=== PATIENT | male | born 1965 | race Caucasian/White ===

== ENCOUNTER → 2017-02-21 | Outpatient (REF) | payer OTHER ==
[~2017-02-21] MED LIST: ADV250INH INH; INDO50CA PO
== END ==
LOC: M LAB REF 12:57
PROVIDERS: ATTEND Internal Medicine
DX: M10.9 Gout, unspecified (principal)

== ENCOUNTER → 2019-08-03 | Outpatient (REF) | payer OTHER ==
[~2019-08-03] MED LIST changes: -INDO50CA PO; +INDO50CA91 PO
== END ==
LOC: M LAB REF 12:11
PROVIDERS: ATTEND Internal Medicine
DX: M10.9 Gout, unspecified (principal)

== ENCOUNTER → 2020-10-14 | Outpatient (REF) | payer OTHER | LOC: M LAB REF 16:30 | PROVIDERS: ATTEND Internal Medicine | DX: E79.0 Hyperuricemia without signs of inflammatory arthritis and tophaceous disease (principal) ==

== ENCOUNTER → 2021-10-20 | Outpatient (REF) | payer OTHER | LOC: M LAB REF 11:21 | PROVIDERS: ATTEND Internal Medicine | DX: E78.00 Pure hypercholesterolemia, unspecified (principal) ==

== ENCOUNTER → 2021-12-03 | Outpatient (CLI) | payer OTHER | LOC: M LABSMTC 09:23 | PROVIDERS: ATTEND Anesthesiology | DX: Z01.812 Encounter for preprocedural laboratory examination (principal); Z20.822 Contact with and (suspected) exposure to COVID-19 ==

== ENCOUNTER 2021-12-08 08:27 | Day surgery (SDC) | payer OTHER ==
[~2021-12-08] VITALS: Ht 170.2 cm; Wt 94.4 kg
[~2021-12-08 08:27] MED LIST changes: +LR 1,000 ML IV ONE
[2021-12-08] MEDS ORDERED: ROCURONIUM BROMIDE 50 MG/5 ML VIAL As Ordered ONE (09:09)
[2021-12-08] MEDS ORDERED: propofoL 200 MG/20 ML VIAL As Ordered ONE (09:09)
[2021-12-08] MEDS ORDERED: METOCLOPRAMIDE INJ 10MG/2ML VIAL (J2765 PER 1) As Ordered ONE (09:09)
[2021-12-08] MEDS ORDERED: dexameTHASONE 4 MG/ML 1ML VIAL (J1100 PER 1MG) As Ordered ONE (09:09)
[2021-12-08] MEDS ORDERED: ACETAMINOPHEN 1000MG 100ML IV BTL (OFIRMEV) (J0131 PER 10MG) As Ordered ONE (09:09)
[2021-12-08] MEDS ORDERED: fentaNYL 100 MCG/2 ML INJECTION (J3010) As Ordered ONE ×2 (09:09→14:57)
[2021-12-08] MEDS ORDERED: LIDOCAINE 2% 100MG/5ML SDV (FOR ANES.) As Ordered ONE (09:09)
[2021-12-08] MEDS ORDERED: MIDAZOLAM INJ 2MG/2ML VIAL (J2250 PER 1MG) As Ordered ONE (09:09)
[2021-12-08] MEDS ORDERED: ONDANSETRON 4MG/2ML VIAL As Ordered ONE (09:09)
[2021-12-08] MEDS ORDERED: BUPIVACAINE HCL 0.25% 30ML VIAL As Ordered ONE (10:50)
[2021-12-08] MEDS ORDERED: KETOROLAC 60MG 2ML VIAL As Ordered ONE (12:24)
[2021-12-08] MEDS ORDERED: LR 1,000 ML IV SCH (12:55)
[2021-12-08] MEDS ORDERED: PERCOCET 5MG/325MG TAB PO PRN (12:55)
[2021-12-08] MEDS ORDERED: fentaNYL 100 MCG/2 ML INJECTION (J3010) IV PRN (12:55)
[2021-12-08] MEDS ORDERED: METOCLOPRAMIDE INJ 10MG/2ML VIAL (J2765 PER 1) IV PRN (12:55)
[2021-12-08] MEDS ORDERED: ONDANSETRON 4MG/2ML VIAL IV PRN (12:55)
[2021-12-08] MEDS ORDERED: NORCO, ANEXSIA 5/325MG TABLET (HYDROcodone/ACETAMINOPHEN) PO PRN (13:00)
[2021-12-08] MEDS ORDERED: IBUPROFEN 600MG TAB PO PRN (13:00)
[2021-12-08] MEDS ORDERED: ACETAMINOPHEN TAB 650MG DOSE (2X325MG) PO PRN (13:00)
[2021-12-08 14:30] VITALS: BP 144/88
[2021-12-08] MEDS ORDERED: SUGAMMADEX SODIUM 500 MG/5 ML VIAL (BRIDION) As Ordered ONE (14:57)
[2021-12-08] MEDS ORDERED: PHENYLephrine 500MCG 5ML (100MCG/ML) SYRINGE As Ordered ONE (16:05)
== END 2021-12-08 15:15 | disposition home or self-care (01) ==
LOC: M SDC 08:27
PROVIDERS: ATTEND Surgery
DX: K40.90 Unilateral inguinal hernia, without obstruction or gangrene, not specified as recurrent (principal); M10.9 Gout, unspecified; J45.909 Unspecified asthma, uncomplicated; Z79.899 Other long term (current) drug therapy; Z79.51 Long term (current) use of inhaled steroids; Z91.010 Allergy to peanuts
CPT/HCPCS: 49650; C1781; J0131; J1100; J1885; J2250; J2370; J2405; J2765; J3010; S2900

== ENCOUNTER → 2022-10-20 | Outpatient (REF) | payer OTHER ==
[~2022-10-20] MED LIST changes: -LR 1,000 ML IV ONE
[2022-10-20 13:55] LABS: URIC ACID 7.4 MG/DL (3.7-9.2)
== END ==
LOC: M LAB REF 12:23
PROVIDERS: ATTEND Internal Medicine
DX: N52.9 Male erectile dysfunction, unspecified (principal); E79.0 Hyperuricemia without signs of inflammatory arthritis and tophaceous disease

== ENCOUNTER → 2023-01-13 | Outpatient (CLI) | payer OTHER ==
[~2023-01-13] MED LIST changes: +ISOVUE-300 61% 100ML VIAL As Ordered ONE; +LIDOCAINE 1% MDV 20ML VIAL As Ordered ONE; +PROHANCE 279.3MG/ML 5ML VIAL As Ordered ONE
== END ==
LOC: M RAD 06:52
PROVIDERS: ATTEND Physician Assistant
DX: S46.011A Strain of muscle(s) and tendon(s) of the rotator cuff of right shoulder, initial encounter (principal); X58.XXXA Exposure to other specified factors, initial encounter; Y92.9 Unspecified place or not applicable
CPT/HCPCS: 23350; 73223; 77002; A9576

== ENCOUNTER 2023-01-18 07:48 | Inpatient (IN) | payer OTHER ==
[2023-01-18] VITALS (9 sets, daily range): BP systolic 160–170; BP diastolic 79–98; O2SAT 95–97
[~2023-01-18] VITALS: Ht 170.2 cm; Wt 93.5 kg
[~2023-01-18 07:48] MED LIST changes: -ISOVUE-300 61% 100ML VIAL As Ordered ONE; -LIDOCAINE 1% MDV 20ML VIAL As Ordered ONE; -PROHANCE 279.3MG/ML 5ML VIAL As Ordered ONE
[2023-01-18] MEDS ORDERED: ONDANSETRON 4MG 2ML VIAL IV ONE (08:30)
[2023-01-18] MEDS: MORPHINE 4 MG/ML 1ML VIAL IV PRN ×2 (08:52→10:06)
[2023-01-18 10:15] LABS: HEMATOCRIT 44.5 % (42.0-52.0); MEAN CORPUSCULAR HGB CONC 33.7 g/dl (32.0-36.5); MEAN CORPUSCULAR VOLUME 97.8 fl (80.0-96.0); PLATELET COUNT, AUTOMATED 219 10^3/uL (150-450); RED BLOOD COUNT 4.55 10^6/uL (4.30-6.10); WHITE BLOOD COUNT 13.2 10^3/uL (4.0-10.0)
[2023-01-18 10:39] LABS: BLOOD UREA NITROGEN 12 MG/DL (9-23); CALCIUM LEVEL 8.6 MG/DL (8.5-10.1); CARBON DIOXIDE LEVEL 29 MMOL/L (20-31); CHLORIDE LEVEL 105 MMOL/L (98-107); CREATININE FOR GFR 0.84 MG/DL (0.70-1.30); GLOMERULAR FILTRATION RATE > 60.0 (>56); GLUCOSE, FASTING 107 MG/DL (60-100); POTASSIUM SERUM 4.6 MMOL/L (3.5-5.1); SODIUM LEVEL 139 MMOL/L (136-145)
[2023-01-18 10:47] LABS: RSV AMPLIFICATION NEGATIVE (NEGATIVE)
[2023-01-18] MEDS ORDERED: HOME MED LIST COMPLETE! XX SCH (11:05)
[2023-01-18] MEDS ORDERED: ACETAMINOPHEN TAB 650MG DOSE (2X325MG) PO PRN (11:30)
[2023-01-18] MEDS ORDERED: ONDANSETRON 4MG 2ML VIAL IV PRN (11:35)
[2023-01-18] MEDS ORDERED: MORPHINE 4 MG/ML 1ML VIAL IV PRN (11:35)
[2023-01-18] MEDS ORDERED: LORazepam 2 MG TAB PO PRN (11:35)
[2023-01-18] MEDS ORDERED: HYDROMORPHONE HCL 0.5 MG/ 0.5 ML SYRINGE IV PRN (11:35)
[2023-01-18] MEDS: HYDROMORPHONE HCL 0.5 MG/ 0.5 ML SYRINGE IV PRN ×2 (12:48→21:33)
[2023-01-18] MEDS: MULTIVITAMINS/MINERALS THERAP 1 TAB PO SCH (15:03)
[2023-01-18] MEDS: FOLIC ACID 1MG TAB PO SCH (15:03)
[2023-01-18] MEDS: THIAMINE 100 MG TAB PO SCH ×2 (15:03→21:32)
[2023-01-18] MEDS: amLODIPine 5 MG TAB PO SCH (15:04)
[2023-01-18] MEDS: ENOXAPARIN 40MG/0.4ML SYRINGE (J1650 PER 10MG) SC SCH (15:04)
[2023-01-18] MEDS ORDERED: ALBUTEROL SULFATE 2.5MG/0.5ML INH NEB SOLN INH PRN (15:55)
[2023-01-18] MEDS: ADVAIR HFA 115/21MCG INHALER INH SCH (19:43)
[2023-01-19] VITALS (17 sets, daily range): BP systolic 134–167; BP diastolic 64–93; O2SAT 92–96
[2023-01-19] MEDS: HYDROMORPHONE HCL 0.5 MG/ 0.5 ML SYRINGE IV PRN (01:34)
[2023-01-19 05:12] LABS: HEMATOCRIT 44.2 % (42.0-52.0); MEAN CORPUSCULAR HEMOGLOBIN 33.3 pg (27.0-33.0); MEAN CORPUSCULAR HGB CONC 33.9 g/dl (32.0-36.5); PLATELET COUNT, AUTOMATED 198 10^3/uL (150-450); RED BLOOD COUNT 4.51 10^6/uL (4.30-6.10); WHITE BLOOD COUNT 9.2 10^3/uL (4.0-10.0)
[2023-01-19 05:38] LABS: BLOOD UREA NITROGEN 14 MG/DL (9-23); CALCIUM LEVEL 8.8 MG/DL (8.5-10.1); CARBON DIOXIDE LEVEL 29 MMOL/L (20-31); CHLORIDE LEVEL 104 MMOL/L (98-107); CREATININE FOR GFR 0.79 MG/DL (0.70-1.30); GLOMERULAR FILTRATION RATE > 60.0 (>56); GLUCOSE, FASTING 106 MG/DL (60-100); POTASSIUM SERUM 4.4 MMOL/L (3.5-5.1); SODIUM LEVEL 139 MMOL/L (136-145)
[2023-01-19] MEDS: PERCOCET 5MG/325MG TAB PO PRN ×3 (08:10→19:30)
[2023-01-19] MEDS: MULTIVITAMINS/MINERALS THERAP 1 TAB PO SCH (08:10)
[2023-01-19] MEDS: THIAMINE 100 MG TAB PO SCH ×2 (08:10→20:23)
[2023-01-19] MEDS: FOLIC ACID 1MG TAB PO SCH (08:11)
[2023-01-19] MEDS: amLODIPine 5 MG TAB PO SCH (08:11)
[2023-01-19] MEDS: ENOXAPARIN 40MG/0.4ML SYRINGE (J1650 PER 10MG) SC SCH (08:11)
[2023-01-19] MEDS: ADVAIR HFA 115/21MCG INHALER INH SCH ×2 (09:25→20:16)
[2023-01-19] MEDS ORDERED: KETOROLAC 30 MG/ML 1ML VIAL IV ONE (11:55)
[2023-01-19] MEDS ORDERED: MORPHINE 4 MG/ML 1ML VIAL IV PRN (13:10)
[2023-01-20 00:30] VITALS: BP 154/92
[2023-01-20 04:00] VITALS: BP 162/98
[2023-01-20] MEDS: PERCOCET 5MG/325MG TAB PO PRN ×4 (04:34→21:59)
[2023-01-20 05:47] LABS: HEMATOCRIT 46.2 % (42.0-52.0); HEMOGLOBIN 15.3 g/dl (13.5-17.5); MEAN CORPUSCULAR HEMOGLOBIN 32.8 pg (27.0-33.0); MEAN CORPUSCULAR HGB CONC 33.1 g/dl (32.0-36.5); MEAN CORPUSCULAR VOLUME 98.9 fl (80.0-96.0); PLATELET COUNT, AUTOMATED 190 10^3/uL (150-450); RED BLOOD COUNT 4.67 10^6/uL (4.30-6.10)
[2023-01-20 06:08] LABS: BLOOD UREA NITROGEN 14 MG/DL (9-23); CARBON DIOXIDE LEVEL 27 MMOL/L (20-31); CHLORIDE LEVEL 105 MMOL/L (98-107); CREATININE FOR GFR 0.83 MG/DL (0.70-1.30); GLOMERULAR FILTRATION RATE > 60.0 (>56); GLUCOSE, FASTING 106 MG/DL (60-100); POTASSIUM SERUM 4.5 MMOL/L (3.5-5.1); SODIUM LEVEL 140 MMOL/L (136-145)
[2023-01-20] MEDS: MORPHINE 2 MG/ML 1ML VIAL IV PRN ×2 (07:33→18:48)
[2023-01-20 08:00] VITALS: BP 153/90
[2023-01-20] MEDS: MULTIVITAMINS/MINERALS THERAP 1 TAB PO SCH (08:09)
[2023-01-20] MEDS: ENOXAPARIN 40MG/0.4ML SYRINGE (J1650 PER 10MG) SC SCH (08:09)
[2023-01-20] MEDS: THIAMINE 100 MG TAB PO SCH ×2 (08:09→21:01)
[2023-01-20] MEDS: FOLIC ACID 1MG TAB PO SCH (08:09)
[2023-01-20] MEDS: amLODIPine 5 MG TAB PO SCH (08:10)
[2023-01-20] MEDS: ADVAIR HFA 115/21MCG INHALER INH SCH ×2 (08:53→19:51)
[2023-01-20 12:00] VITALS: BP 147/92
[2023-01-20 20:00] VITALS: BP 142/78
[2023-01-20] MEDS: SENOKOT S TAB PO SCH (21:01)
[2023-01-21] VITALS (7 sets, daily range): BP systolic 154–178; BP diastolic 84–98
[2023-01-21] MEDS: PERCOCET 5MG/325MG TAB PO PRN ×5 (03:03→20:34)
[2023-01-21 05:34] LABS: HEMATOCRIT 45.7 % (42.0-52.0); HEMOGLOBIN 15.1 g/dl (13.5-17.5); MEAN CORPUSCULAR HEMOGLOBIN 32.8 pg (27.0-33.0); MEAN CORPUSCULAR VOLUME 99.3 fl (80.0-96.0); PLATELET COUNT, AUTOMATED 209 10^3/uL (150-450); WHITE BLOOD COUNT 10.1 10^3/uL (4.0-10.0)
[2023-01-21 06:03] LABS: BLOOD UREA NITROGEN 14 MG/DL (9-23); CALCIUM LEVEL 8.9 MG/DL (8.5-10.1); CARBON DIOXIDE LEVEL 27 MMOL/L (20-31); CHLORIDE LEVEL 102 MMOL/L (98-107); CREATININE FOR GFR 0.84 MG/DL (0.70-1.30); GLOMERULAR FILTRATION RATE > 60.0 (>56); GLUCOSE, FASTING 109 MG/DL (60-100); POTASSIUM SERUM 4.4 MMOL/L (3.5-5.1); SODIUM LEVEL 138 MMOL/L (136-145)
[2023-01-21] MEDS: MORPHINE 2 MG/ML 1ML VIAL IV PRN (06:27)
[2023-01-21] MEDS: ADVAIR HFA 115/21MCG INHALER INH SCH ×2 (07:38→19:24)
[2023-01-21] MEDS: amLODIPine 5 MG TAB PO SCH (08:37)
[2023-01-21] MEDS: MULTIVITAMINS/MINERALS THERAP 1 TAB PO SCH (08:37)
[2023-01-21] MEDS: SENOKOT S TAB PO SCH ×2 (08:37→20:33)
[2023-01-21] MEDS: FOLIC ACID 1MG TAB PO SCH (08:37)
[2023-01-21] MEDS: ENOXAPARIN 40MG/0.4ML SYRINGE (J1650 PER 10MG) SC SCH (08:39)
[2023-01-21] MEDS ORDERED: LIDOCAINE 5% (LIDODERM) PATCH TD ONE (09:45)
[2023-01-21] MEDS ORDERED: MORPHINE 2 MG/ML 1ML VIAL IV PRN (09:45)
[2023-01-21] MEDS: IPRATROPIUM 0.5MG/ALBUTEROL 2.5MG INH SOL UD 3ML (DUONEB) NEB SCH ×4 (11:14→22:55)
[2023-01-21] MEDS ORDERED: amLODIPine 5 MG TAB PO ONE (11:30)
[2023-01-22] MEDS: PERCOCET 5MG/325MG TAB PO PRN ×4 (01:38→22:29)
[2023-01-22] MEDS ORDERED: RAMELTEON 8 MG TAB (ROZEREM) PO PRN (02:25)
[2023-01-22] MEDS: IPRATROPIUM 0.5MG/ALBUTEROL 2.5MG INH SOL UD 3ML (DUONEB) NEB SCH ×5 (03:25→20:00)
[2023-01-22 06:00] VITALS: BP 167/91
[2023-01-22] MEDS: ADVAIR HFA 115/21MCG INHALER INH SCH ×2 (07:39→19:42)
[2023-01-22] MEDS: ENOXAPARIN 40MG/0.4ML SYRINGE (J1650 PER 10MG) SC SCH (07:49)
[2023-01-22] MEDS: MULTIVITAMINS/MINERALS THERAP 1 TAB PO SCH (07:49)
[2023-01-22] MEDS: SENOKOT S TAB PO SCH ×2 (07:50→22:06)
[2023-01-22] MEDS: FOLIC ACID 1MG TAB PO SCH (07:50)
[2023-01-22 08:16] LABS: HEMATOCRIT 42.6 % (42.0-52.0); HEMOGLOBIN 14.4 g/dl (13.5-17.5); MEAN CORPUSCULAR HEMOGLOBIN 33.4 pg (27.0-33.0); MEAN CORPUSCULAR HGB CONC 33.8 g/dl (32.0-36.5); MEAN CORPUSCULAR VOLUME 98.8 fl (80.0-96.0); PLATELET COUNT, AUTOMATED 192 10^3/uL (150-450); RED BLOOD COUNT 4.31 10^6/uL (4.30-6.10); WHITE BLOOD COUNT 12.5 10^3/uL (4.0-10.0)
[2023-01-22 08:42] LABS: BLOOD UREA NITROGEN 15 MG/DL (9-23); CALCIUM LEVEL 8.6 MG/DL (8.5-10.1); CARBON DIOXIDE LEVEL 26 MMOL/L (20-31); CHLORIDE LEVEL 98 MMOL/L (98-107); CREATININE FOR GFR 0.74 MG/DL (0.70-1.30); GLOMERULAR FILTRATION RATE > 60.0 (>56); GLUCOSE, FASTING 101 MG/DL (60-100); POTASSIUM SERUM 4.1 MMOL/L (3.5-5.1); SODIUM LEVEL 134 MMOL/L (136-145)
[2023-01-22] MEDS: MIRALAX *UNIT DOSE* 17GM PACKET PO SCH (09:00)
[2023-01-22] MEDS: DOXYCYCLINE HYCLATE 100MG TABLET PO SCH ×2 (11:41→22:06)
[2023-01-22 14:00] VITALS: BP 155/92
[2023-01-22] MEDS: LOSARTAN 25 MG TAB PO SCH (15:20)
[2023-01-22] MEDS: IBUPROFEN 400MG TAB PO SCH (17:47)
[2023-01-22 20:00] VITALS: BP 130/66
[2023-01-23] MEDS: IPRATROPIUM 0.5MG/ALBUTEROL 2.5MG INH SOL UD 3ML (DUONEB) NEB SCH ×4 (00:04→11:25)
[2023-01-23] MEDS: PERCOCET 5MG/325MG TAB PO PRN (05:17)
[2023-01-23 06:00] VITALS: BP 141/82
[2023-01-23 06:23] LABS: HEMATOCRIT 42.7 % (42.0-52.0); HEMOGLOBIN 14.6 g/dl (13.5-17.5); MEAN CORPUSCULAR HEMOGLOBIN 33.5 pg (27.0-33.0); MEAN CORPUSCULAR HGB CONC 34.2 g/dl (32.0-36.5); MEAN CORPUSCULAR VOLUME 97.9 fl (80.0-96.0); PLATELET COUNT, AUTOMATED 188 10^3/uL (150-450); RED BLOOD COUNT 4.36 10^6/uL (4.30-6.10); WHITE BLOOD COUNT 9.2 10^3/uL (4.0-10.0)
[2023-01-23 06:52] LABS: BLOOD UREA NITROGEN 14 MG/DL (9-23); CALCIUM LEVEL 8.6 MG/DL (8.5-10.1); CARBON DIOXIDE LEVEL 28 MMOL/L (20-31); CHLORIDE LEVEL 102 MMOL/L (98-107); CREATININE FOR GFR 0.65 MG/DL (0.70-1.30); GLOMERULAR FILTRATION RATE > 60.0 (>56); GLUCOSE, FASTING 128 MG/DL (60-100); POTASSIUM SERUM 4.2 MMOL/L (3.5-5.1); SODIUM LEVEL 138 MMOL/L (136-145)
[2023-01-23] MEDS: ADVAIR HFA 115/21MCG INHALER INH SCH (08:03)
[2023-01-23] MEDS: ENOXAPARIN 40MG/0.4ML SYRINGE (J1650 PER 10MG) SC SCH (09:23)
[2023-01-23] MEDS: MIRALAX *UNIT DOSE* 17GM PACKET PO SCH (09:24)
[2023-01-23] MEDS: FOLIC ACID 1MG TAB PO SCH (09:25)
[2023-01-23] MEDS: DOXYCYCLINE HYCLATE 100MG TABLET PO SCH (09:25)
[2023-01-23] MEDS: SENOKOT S TAB PO SCH (09:25)
[2023-01-23 09:26] VITALS: BP 141/83
[2023-01-23] MEDS: LOSARTAN 25 MG TAB PO SCH (09:26)
[2023-01-23] MEDS: MULTIVITAMINS/MINERALS THERAP 1 TAB PO SCH (09:27)
[2023-01-23] MEDS: IBUPROFEN 400MG TAB PO SCH (09:27)
[2023-01-23] MEDS ORDERED: MIRA1POW3 PO (11:12)
[2023-01-23] MEDS ORDERED: PERCOCET PO (11:12)
[2023-01-23] MEDS ORDERED: COZA1TAB PO (11:12)
[2023-01-23] MEDS ORDERED: AMLO1TAB25 PO (11:12)
[2023-01-23] MEDS ORDERED: IBUP-1114 PO (11:12)
[2023-01-23] MEDS ORDERED: DULC10SU2 PR (11:12)
[2023-01-23] MEDS ORDERED: SENN-52 PO (11:12)
[2023-01-23] MEDS ORDERED: DOXY100T PO (11:12)
[2023-01-23] MEDS ORDERED: LIDO1PAD TOP (11:16)
== END 2023-01-23 13:24 | disposition home or self-care (01) | DRG 135 ==
LOC: M ED 07:48 → EDBD 07:48 → M ED INP 11:27 → ENRESERV 11:51 → M PCU 12:59 → M MSPAV 01-21 17:30
PROVIDERS: ADMIT Internal Medicine; ATTEND Internal Medicine
DX: S22.41XA Multiple fractures of ribs, right side, initial encounter for closed fracture (principal); I10 Essential (primary) hypertension; J45.909 Unspecified asthma, uncomplicated; M10.9 Gout, unspecified; D72.829 Elevated white blood cell count, unspecified; K59.00 Constipation, unspecified; W00.0XXA Fall on same level due to ice and snow, initial encounter; Y92.9 Unspecified place or not applicable; I16.0 Hypertensive urgency; F10.20 Alcohol dependence, uncomplicated; Z79.899 Other long term (current) drug therapy; Z91.018 Allergy to other foods; Z20.822 Contact with and (suspected) exposure to COVID-19; L03.114 Cellulitis of left upper limb; T82.868A Thrombosis due to vascular prosthetic devices, implants and grafts, initial encounter

== ENCOUNTER → 2023-10-21 | Outpatient (REF) | payer OTHER ==
[~2023-10-21] MED LIST changes: +AMLO1TAB25 PO; +DOXY100T PO; +DULC10SU2 PR; +IBUP-1114 PO; +LIDO1PAD TOP; +LOSA-527 PO; +MIRA1POW3 PO; +PERCOCET PO; +SENN-52 PO
== END ==
LOC: M LAB REF 11:58
PROVIDERS: ATTEND Internal Medicine
DX: M10.9 Gout, unspecified (principal)

== ENCOUNTER 2024-05-01 09:44 | Emergency (ER) | payer OTHER ==
[~2024-05-01] VITALS: Ht 170.2 cm; Wt 93.2 kg
[~2024-05-01 09:44] MED LIST changes: -MIRA1POW3 PO; +MIRA33506 PO
[2024-05-01] MEDS: ACETAMINOPHEN 325 MG TAB PO ONE (10:40)
[2024-05-01] MEDS: NS 1,000 ML IV ONE (10:41)
[2024-05-01 10:53] LABS: BASO % 0.2 % (0.0-1.0); EOS % 0.1 % (0.0-3.0); HEMATOCRIT 42.6 % (42.0-52.0); HEMOGLOBIN 15.2 g/dl (13.5-17.5); LYMPH # 0.3 10^3/uL (1.5-5.0); LYMPH % 2.4 % (24.0-44.0); MEAN CORPUSCULAR HEMOGLOBIN 33.8 pg (27.0-33.0); MEAN CORPUSCULAR HGB CONC 35.7 g/dl (32.0-36.5); MEAN CORPUSCULAR VOLUME 94.7 fl (80.0-96.0); MONO # 0.7 10^3/uL (0.0-0.8); MONO % 5.9 % (2.0-8.0); NEUTROPHILS # 11.1 10^3/uL (1.5-8.5); NEUTROPHILS % 90.3 % (36.0-66.0); PLATELET COUNT, AUTOMATED 142 10^3/uL (150-450); WHITE BLOOD COUNT 12.3 10^3/uL (4.0-10.0)
[2024-05-01 11:25] LABS: ALBUMIN 3.5 G/DL (3.2-5.2); ALKALINE PHOSPHATASE 71 U/L (46-116); ALT/SGPT 52 U/L (7.0-40); AST/SGOT 42 U/L (<34); BILIRUBIN,DIRECT 0.5 MG/DL (<0.4); BILIRUBIN,TOTAL 1.1 MG/DL (0.3-1.2); BLOOD UREA NITROGEN 15 MG/DL (9-23); CALCIUM LEVEL 8.8 MG/DL (8.5-10.1); CARBON DIOXIDE LEVEL 24 MMOL/L (20-31); CHLORIDE LEVEL 102 MMOL/L (98-107); CREATININE FOR GFR 0.93 MG/DL (0.70-1.30); GLOMERULAR FILTRATION RATE > 60.0 (>56); GLUCOSE, FASTING 105 MG/DL (60-100); POTASSIUM SERUM 3.9 MMOL/L (3.5-5.1); SODIUM LEVEL 134 MMOL/L (136-145); TOTAL PROTEIN 6.7 G/DL (5.7-8.2)
[2024-05-01 12:30] VITALS: BP 121/63; TEMP 97.4; O2SAT 95
[2024-05-01] MEDS: IBUPROFEN 600MG TAB PO ONE (12:36)
== END 2024-05-01 12:51 | disposition home or self-care (01) ==
LOC: EDBD 09:44 → M ED 09:44
DX: R50.9 Fever, unspecified (principal); F10.10 Alcohol abuse, uncomplicated; Z91.010 Allergy to peanuts; Z79.1 Long term (current) use of non-steroidal anti-inflammatories (NSAID); Z79.899 Other long term (current) drug therapy

== ENCOUNTER → 2024-07-02 | Outpatient (CLI) | payer OTHER ==
[2024-07-02 09:40] LABS: HEMATOCRIT 45.4 % (42.0-52.0); HEMOGLOBIN 15.7 g/dl (13.5-17.5); MEAN CORPUSCULAR HEMOGLOBIN 34.1 pg (27.0-33.0); MEAN CORPUSCULAR HGB CONC 34.6 g/dl (32.0-36.5); MEAN CORPUSCULAR VOLUME 98.5 fl (80.0-96.0); PLATELET COUNT, AUTOMATED 227 10^3/uL (150-450); RED BLOOD COUNT 4.61 10^6/uL (4.30-6.10); WHITE BLOOD COUNT 7.2 10^3/uL (4.0-10.0)
[2024-07-02 09:52] LABS: ERYTHROCYTE SEDIMENTATION RATE 19 mm/hr (0-20)
[2024-07-02 09:54] LABS: INR 1.02; PROTHROMBIN TIME 13.1 SECONDS (12.5-14.5)
[2024-07-02 10:05] LABS: ALBUMIN 3.9 G/DL (3.2-5.2); ALKALINE PHOSPHATASE 73 U/L (46-116); ALT/SGPT 36 U/L (7.0-40); AST/SGOT 29 U/L (<34); BILIRUBIN,TOTAL 0.6 MG/DL (0.3-1.2); BLOOD UREA NITROGEN 12 MG/DL (9-23); CALCIUM LEVEL 8.8 MG/DL (8.5-10.1); CARBON DIOXIDE LEVEL 30 MMOL/L (20-31); CHLORIDE LEVEL 103 MMOL/L (98-107); GLOMERULAR FILTRATION RATE > 60.0 (>56); GLUCOSE, FASTING 93 MG/DL (60-100); POTASSIUM SERUM 4.7 MMOL/L (3.5-5.1); SODIUM LEVEL 136 MMOL/L (136-145); TOTAL PROTEIN 7.2 G/DL (5.7-8.2)
== END ==
LOC: M RAD 08:25
PROVIDERS: ATTEND Orthopaedic Surgery
DX: Z01.818 Encounter for other preprocedural examination (principal); M16.12 Unilateral primary osteoarthritis, left hip; I45.19 Other right bundle-branch block

== ENCOUNTER 2025-09-09 10:44 | Day surgery (SDC) | payer OTHER ==
[~2025-09-09] VITALS: Ht 170.2 cm; Wt 94.0 kg
[~2025-09-09 10:44] MED LIST changes: -ADV250INH INH; +ADVA1AER9 INH; +LOSA50TA28 PO; +SILD50TA2 PO
[2025-09-09] MEDS ORDERED: LIDOCAINE 2% 100 MG/5 ML SDV (FOR ANES.) As Ordered ONE (11:42)
[2025-09-09 12:30] VITALS: TEMP 98.2
[2025-09-09 12:47] VITALS: BP 138/60; O2SAT 96
== END 2025-09-09 12:52 | disposition home or self-care (01) ==
LOC: M OPP 10:44
PROVIDERS: ATTEND Internal Medicine Gastroenterology
DX: Z12.11 Encounter for screening for malignant neoplasm of colon (principal); D12.6 Benign neoplasm of colon, unspecified; Z91.018 Allergy to other foods; Z79.899 Other long term (current) drug therapy; J45.909 Unspecified asthma, uncomplicated; F17.220 Nicotine dependence, chewing tobacco, uncomplicated